=== PATIENT | female | born 1945 ===

== ENCOUNTER → 2024-10-29 07:29 | Outpatient (REF) | payer OTHER, SELFPAY | LOC: PET 07:29 | PROVIDERS: ATTENDING PHYSICIAN Psychiatry & Neurology Neurology | DX: G31.9 Degenerative disease of nervous system, unspecified (principal); F03.90 Unspecified dementia, unspecified severity, without behavioral disturbance, psychotic disturbance, mood disturbance, and anxiety; R41.3 Other amnesia | CPT/HCPCS: 78608; A9552 ==